=== PATIENT | female | born 1980 | race African-American/Black ===

== ENCOUNTER 2016-11-11 13:28 | Emergency (ER) | payer OTHER, MEDICAID ==
[2016-11-11] MEDS ORDERED: Ondansetron ODT TAB* 4 MG PO ONE (13:59)
[2016-11-11 14:05] VITALS: BP 156/86
--- NOTE | 2016-11-11 14:49 | UC ---
Dizzy HPI HPI Summary: SUDDEN ONSET FRONTAL PRESSURE IN HER HEAD. FEELS DIZZY, NAUSEATED, LIKE SHE IS "IN A FOG". REPORTS SHE CAN NOT TASTE ANYTHING AND HAS LOST SENSATION TO HER ARMS AND HANDS. COPIOUS EMESIS IN EXAM ROOM TODAY. HAS H/O MIGRAINE BUT STATES THIS DOES NOT FEEL LIKE MIGRAINE. NO FEVER. NO VISUAL DISTURBANCE OR PHOTOPHOBIA. - History Of Current Complaint Chief Complaint: UCHeadache Stated Complaint: HEADACHE DIZZY Time Seen by Provider: 11/11/16 14:19 Hx Obtained From: Patient Hx Last Menstrual Period: 10/29/16 Onset/Duration: Sudden Onset, Lasting Hours, Still Present Timing: Constant Severity Initially: Moderate Severity Currently: Moderate Pain Intensity: 9 Pain Scale Used: 0-10 Numeric Character: Weak, Dizzy Aggravating Factor(s): Nothing Alleviating Factor(s): Nothing Associated Signs And Symptoms: Positive: Nausea, Vomiting. Negative: Visual Changes - Allergies/Home Medications Allergies/Adverse Reactions: Allergies Allergy/AdvReac Type Severity Reaction Status Date / Time No Known Allergies Allergy Verified 11/11/16 14:05 Home Medications: Home Medications Sumatriptan Succinate [Imitrex] 50 mg PO 11/11/16 [History] PMH/Surg Hx/FS Hx/Imm Hx Endocrine History Of: Denies: Diabetes, Thyroid Disease, Hyperthyroidism, Hypothyroidism, Dyslipidemia Cardiovascular History Of: Denies: Cardiac Disorders, Hypertension, Pacemaker/ICD, Myocardial Infarction , Congestive Heart Failure, Atrial Fibrillation, Deep Vein Thrombosis, Bleeding Disorders Respiratory History Of: Reports: Asthma - She states she has a mild case of asthma--she is Advair 250/50 Denies: COPD, Bronchitis, Pneumonia, Pulmonary Embolism GI/ History Of: Denies: Gastroesophageal Reflux, Ulcer, Gastrointestinal Bleed, Gall Bladder Disease, Kidney Stones, Diverticulitis, Renal Disease, Urosepsis Neurological History Of: Reports: Migraine Denies: TIA, CVA, Dementia, Seizures Psychological History Of: Reports: Anxiety, Depression Cancer History Of: Denies: Lung Cancer, Colorectal Cancer, Breast Cancer, Prostate Cancer, Cervical Cancer Other History Of: Negative For: HIV, Hepatitis B, Hepatitis C, Anticoagulant Therapy - Surgical History Surgical History: Yes Surgery Procedure, Year, and Place: 2010 - Family History Known Family History: Positive: Cardiac Disease, Hypertension, Diabetes Family History: NON CONTRIBUTORY - Social History Alcohol Use: None Substance Use Type: None Smoking Status (MU): Never Smoked Tobacco Review of Systems Constitutional: Negative Eyes: Negative ENT: Negative Respiratory: Negative Cardiovascular: Negative Gastrointestinal: Vomiting, Other - NAUSEA Genitourinary: Negative Neurological: Headache, Numbness, Other - DIZZY All Other Systems Reviewed And Are Negative: Yes Physical Exam Triage Information Reviewed: Yes Appearance: Well-Appearing, No Pain Distress, Well-Nourished Vital Signs: Initial Vital Signs Temp 97.7 F 11/11/16 13:56 Pulse 72 11/11/16 13:56 Resp 18 11/11/16 13:56 BP 156/86 11/11/16 13:56 Pulse Ox 99 11/11/16 13:56 Vital Signs Reviewed: Yes Eyes: Positive: Conjunctiva Clear, Other: - PERRL, EOMI ENT: Positive: Hearing grossly normal Neck: Positive: Supple Respiratory Exam: Normal Cardiovascular Exam: Normal Abdomen Description: Positive: Soft Musculoskeletal: Positive: No Edema Neurological: Positive: Alert, Other: - CN II-XII GROSSLY INTACT BILATERALLY. NEG PRONATOR DRIFT. FINGER TO NOSE INTACT BILATERALLY. HEEL TO HINKLE INTACT BILATERALLY. RAPID ALTERNATING MVMTS INTACT. 5/5 STRENGTH. UNABLE TO DISTINGUISH SHARP/DULL UPPER EXTREMITIES Psychological: Positive: Age Appropriate Behavior Skin: Negative: rashes Dizzy Course/Dx - Differential Dx/Diagnosis Provider Diagnoses: DIZZY/NAUSEA/SMITH - Physician Notifications Discussed Patient Care With: CLEMENTINA SCHULTE Time Discussed With Above Provider: 14:40 - TO [facility] [place] [facility] BY AMBULANCE Discharge - Discharge Plan Condition: Stable Disposition: TRANS HIGHER L OF CARE FAC Referrals: Itzel Torres MD [Primary Care Provider] -
== END 2016-11-11 14:52 | disposition short-term general hospital (02) ==
LOC: UCEAST 13:28
DX: R42 Dizziness and giddiness (principal); R11.0 Nausea; R51 Headache; J45.909 Unspecified asthma, uncomplicated; F41.8 Other specified anxiety disorders
CPT/HCPCS: 99213; G0463

== ENCOUNTER 2016-11-11 15:10 | Emergency (ER) | payer OTHER, MEDICAID ==
[2016-11-11] MEDS ORDERED: Ondansetron INJ* 2 MG/ML VIAL IV ONE (15:29)
[2016-11-11] MEDS ORDERED: NS 0.9% 1000 ML* 1,000 ML IV ONE (16:10)
[2016-11-11] MEDS ORDERED: Metoclopramide IV* 5 MG/ML 2 ML VIAL IV ONE (16:10)
[2016-11-11] MEDS ORDERED: diPHENhydraMINE IV* 50 MG/ML 1 ml VIAL (BENADRYL) IV ONE (16:10)
[2016-11-11 16:24] LABS: Hematocrit 41 % (35-47); Hemoglobin 13.1 g/dl (12.0-16.0); Mean Corpuscular HGB Conc 32 g/dl (31-36); Mean Corpuscular Hemoglobin 26 pg (27-31); Mean Corpuscular Volume 81 fL (80-97); Mean Platelet Volume 8 um3 (7.4-10.4); Red Blood Count 5.07 10^6/ul (4.0-5.4); Red Cell Distribution Width 16 % (10.5-15)
[2016-11-11 16:32] LABS: Albumin 3.7 g/dL (3.2-5.2); BUN/Creatinine Ratio 10.8 (8-20); Calcium 9.1 mg/dL (8.6-10.3); EGFR African American 113.6 (>60); EGFR Non-African American 88.3 (>60); Globulin 3.6 g/dL (2-4); Total Bilirubin 1.2 mg/dL (0.2-1.0); Total Protein 7.3 g/dL (6.4-8.9)
[2016-11-11 16:33] LABS: Potassium 4.3 mmol/L (3.5-5.0)
--- NOTE | 2016-11-11 16:54 | RAD ---
INDICATION: "Worst headache of her life" COMPARISON: None. TECHNIQUE: Contiguous axial sections of the brain were obtained from the skull base to the vertex without contrast. FINDINGS: The ventricles, cisterns and sulci are within normal limits. The hernandez-white matter differentiation is adequately maintained and there is no sulcal effacement. No significant focal abnormality or mass effect is present. There is no evidence for intracranial hemorrhage. No significant focal osseous abnormality is present. There is mild mucosal thickening of the bilateral visualized maxillary sinuses with a fluid level on the left. The remaining visualized paranasal sinuses are clear. The mastoid air cells are clear. IMPRESSION: Partially visualized maxillary paranasal sinus disease in this otherwise normal brain CT.
[2016-11-11 17:59] LABS: Erythrocyte Sed Rate 11 mm/Hr (0-14)
[2016-11-11] MEDS ORDERED: Ketorolac INJ* 30 MG/ML 1 ML VIAL IV PUSH ONE (18:04)
[2016-11-11 18:12] LABS: Urine Bilirubin Negative (Negative); Urine Glucose Negative (Negative); Urine Nitrite Negative (Negative)
--- NOTE | 2016-11-11 18:48 | ED ---
Feng Brito Adam, scribed for Kareem Wilkinson MD on 11/11/16 at 1609 . Headache - HPI Summary HPI Summary: Pt is a 36 year old female presenting with a SMITH that has been present since she woke up this morning. She has a hx of migraines but states that this is more severe than a typical migraine. The pain is localized diffusely in the top of her head on all sides. It does not radiate to her eyes. It is an 8.5/10 in severity and it's described as a pressure. The pt states that it feels like her head is a balloon that is going to pop. She also c/o nausea, tingling sensation , and loss of taste. She denies any difficulty swallowing, neck pain, or fever. PMHx of endometriosis. Surgical hx of endometrial mass removal. No alcohol/drugs /tobacco. FMHx of CVA. - History Of Current Complaint Chief Complaint: EDHeadache Stated Complaint: VOMITING/HEADACHE Time Seen by Provider: 11/11/16 16:06 Hx Obtained From: Patient Hx Last Menstrual Period: 10/29/16 Onset/Duration: Sudden Onset, Started hours ago, Still Present Initially Headache Was: Moderate Currently Pain Is: Moderate Timing: Constant Character: Pressure Location of Headache: Other: - Top of head on all sides Aggravating Factor: Nothing Allevating Factors: Nothing Associated Signs And Symptoms: Nausea, Other (Noted In Comments) - Tingling sensation, loss of taste - Allergies/Home Medications Allergies/Adverse Reactions: Allergies Allergy/AdvReac Type Severity Reaction Status Date / Time No Known Allergies Allergy Verified 11/11/16 15:16 Home Medications: Home Medications SUMAtriptan TAB* [Imitrex TAB*] 50 mg PO ONCE PRN MDD 100 mg 11/11/16 [History Confirmed 11/11/16] PMH/Surg Hx/FS Hx/Imm Hx Endocrine/Hematology History: Denies: Hx Anticoagulant Therapy, Hx Diabetes, Hx Thyroid Disease Cardiovascular History: Denies: Hx Congestive Heart Failure, Hx Deep Vein Thrombosis, Hx Hypertension , Hx Myocardial Infarction, Hx Pacemaker/ICD Respiratory History: Reports: Hx Asthma - She states she has a mild case of asthma--she is Advair 250/50 Denies: Hx Chronic Obstructive Pulmonary Disease (COPD), Hx Lung Cancer, Hx Pneumonia, Hx Pulmonary Embolism GI History: Reports: Other GI Disorders - umbilical hernia Denies: Hx Gall Bladder Disease, Hx Gastrointestinal Bleed, Hx Ulcer, Hx Urosepsis History: Denies: Hx Dialysis, Hx Kidney Stones, Hx Renal Disease Musculoskeletal History: Reports: Hx Arthritis, Other Musculoskeletal History - diastasis recti, urachal anomaly Neurological History: Reports: Hx Migraine Denies: Hx Dementia, Hx Seizures, Hx Transient Ischemic Attacks (TIA) Psychiatric History: Reports: Hx Anxiety, Hx Depression - Surgical History Surgery Procedure, Year, and Place: 2011 Infectious Disease History: No Infectious Disease History: Denies: History Other Infectious Disease, Traveled Outside the [place] in Last 30 Days - Family History Known Family History: Positive: Cardiac Disease, Hypertension, Diabetes, Other - CVA - Social History Lives: Alone Alcohol Use: None Hx Substance Use: No Substance Use Type: Reports: None Hx Tobacco Use: No Smoking Status (MU): Never Smoked Tobacco Review of Systems Negative: Fever Musculoskeletal: Negative Neurological: Other - Loss of taste Positive: Headache, Numbness - Tingling sensation All Other Systems Reviewed And Are Negative: Yes Physical Exam - Summary Physical Exam Summary: VITAL SIGNS: Reviewed. GENERAL: Patient is a well developed and nourished female who is lying comfortable in the stretcher. She is very pleasant she is not in severe distress. Patient is not in any acute respiratory distress. HEAD AND FACE: No signs of trauma. No ecchymosis, hematomas or skull depressions. No sinus tenderness. EYES: PERRLA, EOMI x 2, No injected conjunctiva, no nystagmus. No photophobia. EARS: Hearing grossly intact. Ear canals and tympanic membranes are within normal limits. MOUTH: Oropharynx within normal limits. NECK: Supple, trachea is midline, no adenopathy, no JVD, no carotid bruit, no c- spine tenderness, neck with full ROM. No meningeal signs, no Kernig's or brudzinskis signs. CHEST: Symmetric, no tenderness at palpation LUNGS: Clear to auscultation bilaterally. No wheezing or crackles. CVS: Regular rate and rhythm, S1 and S2 present, no murmurs or gallops appreciated. ABDOMEN: Soft, non-tender. No signs of distention. No rebound no guarding, and no masses palpated. Bowel sounds are normal. EXTREMITIES: FROM in all major joints, no edema, no cyanosis or clubbing. NEURO: Alert and oriented x 3. No acute neurological deficits. Speech is normal and follows commands. SKIN: Dry and warm Triage Information Reviewed: Yes Vital Signs On Initial Exam: Initial Vitals Temp Pulse Resp BP Pulse Ox 97.8 F 80 16 140/90 98 11/11/16 15:17 11/11/16 15:17 11/11/16 15:17 11/11/16 15:17 11/11/16 15:17 Vital Signs Reviewed: Yes Diagnostics - Vital Signs Vital Signs Temp Pulse Resp BP Pulse Ox 11/11/16 15:17 97.8 F 80 16 140/90 98 - Laboratory Lab Results: Lab Results 11/11/16 11/11/16 Range/Units 14:43 14:43 WBC 12.0 H (3.5-10.8) 10^3/ul RBC 5.07 (4.0-5.4) 10^6/ul Hgb 13.1 (12.0-16.0) g/dl Hct 41 (35-47) % MCV 81 (80-97) fL MCH 26 L (27-31) pg MCHC 32 (31-36) g/dl RDW 16 H (10.5-15) % Plt Count 364 (150-450) 10^3/ul MPV 8 (7.4-10.4) um3 Neut % (Auto) 61.2 (38-83) % Lymph % (Auto) 29.2 (25-47) % Sterling % (Auto) 7.7 (1-9) % Eos % (Auto) 1.2 (0-6) % Baso % (Auto) 0.7 (0-2) % Absolute Neuts (auto) 7.4 (1.5-7.7) 10^3/ul Absolute Lymphs (auto) 3.5 (1.0-4.8) 10^3/ul Absolute Monos (auto) 0.9 H (0-0.8) 10^3/ul Absolute Eos (auto) 0.1 (0-0.6) 10^3/ul Absolute Basos (auto) 0.1 (0-0.2) 10^3/ul Absolute Nucleated RBC 0.01 10^3/ul Nucleated RBC % 0.1 ESR Pending Sodium 137 (133-145) mmol/L Potassium 4.3 (3.5-5.0) mmol/L Chloride 102 (101-111) mmol/L Carbon Dioxide 31 (22-32) mmol/L Anion Gap 4 (2-11) mmol/L BUN 8 (6-24) mg/dL Creatinine 0.74 (0.51-0.95) mg/dL Est GFR ( Amer) 113.6 (>60) Est GFR (Non-Af Amer) 88.3 (>60) BUN/Creatinine Ratio 10.8 (8-20) Glucose 80 (70-100) mg/dL Calcium 9.1 (8.6-10.3) mg/dL Total Bilirubin 1.20 H (0.2-1.0) mg/dL AST 23 (13-39) U/L ALT 19 (7-52) U/L Alkaline Phosphatase 41 (34-104) U/L Total Protein 7.3 (6.4-8.9) g/dL Albumin 3.7 (3.2-5.2) g/dL Globulin 3.6 (2-4) g/dL Albumin/Globulin Ratio 1.0 (1-3) Result Diagrams: 11/11/16 14:43 11/11/16 14:43 Lab Statement: Any lab studies that have been ordered have been reviewed, and results considered in the medical decision making process. - CT BRAIN CT Interpretation Completed By: Radiologist - IMPRESSION: Partially visualized maxillary paranasal sinus disease in this otherwise normal brain CT. Headache Course/Dx - Course Course Of Treatment: Pt is a 36 year old female presenting with a SMITH that has been present since she woke up this morning. She has a hx of migraines but states that this is more severe than a typical migraine. The pain is localized diffusely in the top of her head on all sides. It does not radiate to her eyes. It is an 8.5/10 in severity and it's described as a pressure. The pt states that it feels like her head is a balloon that is going to pop. She also c/o nausea, tingling sensation, and loss of taste. She denies any difficulty swallowing, neck pain, or fever. PMHx of endometriosis. Surgical hx of endometrial mass removal. No alcohol/drugs/tobacco. FMHx of CVA. Assessment/Plan: Test results WNL except for WBC count of 12. Head CT shows: Partially visualized maxillary paranasal sinus disease in this otherwise normal brain CT. In the ED course the pt was given IV fluids, toradol, Benadryl, and reglan for the SMITH. After the pt was given these meds her pain significantly improved. At this point the pt is feeling better. She is ambulating with no significant distress. She is hemodynamically stable and A&Ox3. I discussed all the findings and test results with the patient. Patient was instructed to return to the emergency room immediately if any of the symptoms return or worsens. Patient understands and agrees. Plan of care was discussed with the patient and patient understands and agrees with the plan of care. All questions were answered at patient satisfaction. There were no further complaints or concerns. Patient is alert and oriented x 3. Patient vital signs are stable. Patient is to follow up with primary care physician in the next 2 to 3 days. Patient understands and agrees. - Diagnoses Differential Diagnosis/HQI/PQRI: TIA, Epidural Hematoma, Migraine, Sinus Headache, Subarachnoid Hemorrhage, Tension Headache Provider Diagnoses: Migraine headache Discharge - Discharge Plan Condition: Stable Disposition: HOME Patient Education Materials: Migraine Headache (ED) Referrals: Itzel Torres MD [Primary Care Provider] - Additional Instructions: Follow up with your Primary Care Physician. The documentation as recorded by the Feng newsome Adam accurately reflects the service I personally performed and the decisions made by me, Kareem Wilkinson MD.
[2016-11-12 05:20] VITALS: BP 109/60
== END 2016-11-11 19:38 | disposition home or self-care (01) ==
LOC: ED 15:10
DX: G43.909 Migraine, unspecified, not intractable, without status migrainosus (principal); J45.909 Unspecified asthma, uncomplicated; F41.9 Anxiety disorder, unspecified; F32.9 Major depressive disorder, single episode, unspecified
CPT/HCPCS: 36415; 70450; 80053; 81003; 85025; 85652; 96360; 96374; 96375; 99283; J1200; J1885; J2405

== ENCOUNTER 2017-09-14 07:58 | Emergency (ER) | payer OTHER, MEDICAID ==
[2017-09-14 08:09] VITALS: BP 123/75
--- NOTE | 2017-09-14 08:53 | UC ---
FLU HPI - HPI Summary HPI Summary: Pt presents with dry cough, chest tightness, fatigue, and body aches for the last 2 days. She is a student at [employer] and has had many sick contacts with the flu. She has a history of asthma and has inhalers at home that she uses - says her albuterol HFA is only helping a little. She also complains of wheezing - especially at nighttime. Denies fever, chills, SOB, chest pain, abdominal pain , n/v/d/c - History of Current Complaint Chief Complaint: UCGeneralIllness Stated Complaint: RESP ISSUE Time Seen by Provider: 09/14/17 08:52 Hx Obtained From: Patient Hx Last Menstrual Period: 09/13/17 Onset/Duration: Gradual Onset Severity Currently: Moderate Severity Initially: Moderate Pain Intensity: 7 Pain Scale Used: 0-10 Numeric - Allergy/Home Medications Allergies/Adverse Reactions: Allergies Allergy/AdvReac Type Severity Reaction Status Date / Time No Known Allergies Allergy Verified 09/14/17 08:04 PMH/Surg Hx/FS Hx/Imm Hx Previously Healthy: Yes Respiratory History: Asthma Other History Of: Negative For: HIV, Hepatitis B, Hepatitis C, Anticoagulant Therapy - Surgical History Surgical History: Yes Surgery Procedure, Year, and Place: 2010 - Family History Known Family History: Positive: Cardiac Disease, Hypertension, Diabetes, Other - CVA - Social History Occupation: Student Lives: With Family Alcohol Use: None Substance Use Type: None Smoking Status (MU): Never Smoked Tobacco Review of Systems Constitutional: Fatigue, Other - Body aches ENT: Negative Respiratory: Cough Cardiovascular: Negative Gastrointestinal: Negative Musculoskeletal: Negative Neurological: Negative Psychological: Negative All Other Systems Reviewed And Are Negative: Yes Physical Exam Triage Information Reviewed: Yes Appearance: Well-Appearing, No Pain Distress, Well-Nourished Vital Signs: Initial Vital Signs Temp 96.6 F 09/14/17 08:04 Pulse 81 09/14/17 08:04 Resp 20 09/14/17 08:04 BP 123/75 09/14/17 08:04 Pulse Ox 98 09/14/17 08:04 Vital Signs Reviewed: Yes Eyes: Positive: Conjunctiva Clear. Negative: Conjunctiva Inflamed, Discharge ENT: Positive: Hearing grossly normal, Pharynx normal, TMs normal, Uvula midline. Negative: Pharyngeal erythema, Nasal congestion, Nasal drainage, TM bulging, TM dull, TM red, Tonsillar swelling, Tonsillar exudate, Muffled voice, Hoarse voice, Sinus tenderness Neck: Positive: Supple, Nontender, No Lymphadenopathy Respiratory: Positive: Lungs clear, No respiratory distress, No accessory muscle use, Wheezing - Moderate throughout. Negative: Crackles Cardiovascular: Positive: RRR, No Murmur, Pulses Normal Neurological: Positive: Fatigued Psychological: Positive: Age Appropriate Behavior Skin: Negative: rashes Re-Evaluation - Re-Evaluation First Eval Re-Evaluation Time: 09:57 Change: Improved Comment: Pt reports significant improvement and feels it is easier to breathe. Lung sounds improved with decreased wheezing. Flu Course/Dx - Course Course Of Treatment: Duoneb: Significant improvement. CXR: IMPRESSION: HYPERINFLATION WHICH CAN BE SEEN WITH COPD OR REACTIVE AIRWAY DISEASE. NO ACTIVE CARDIOPULMONARY DISEASE. Flu swab: flu A pos. Will treat with Tamiflu and steroids given her history of asthma and current exacerbation. - Differential Dx/Diagnosis Provider Diagnoses: Influenza A. Asthma exacerbation Discharge - Discharge Plan Condition: Stable Disposition: HOME Prescriptions: Oseltamivir CAP* [Tamiflu CAP*] 75 mg PO BID #10 cap predniSONE TAB* [Deltasone TAB*] 50 mg PO DAILY #5 tab Patient Education Materials: Influenza (ED) Forms: *School Release Referrals: No Primary Care Phys,NOPCP [Primary Care Provider] - Additional Instructions: If you develop a fever, shortness of breath, chest pain, new or worsening symptoms - please call your PCP or go to the ED. 1) Rest, drink plenty of fluids, and take tylneol as needed for fever and general discomfort.
[2017-09-14] MEDS ORDERED: Albuterol/Ipratropium NEB.SOL* Albuterol 2.5 MG/Ipratropium 0.5 MG 3 ML INH ONE (09:04)
--- NOTE | 2017-09-14 09:28 | RAD ---
HISTORY: Cough, wheeze COMPARISONS: None VIEWS: 4: Frontal dual-energy and lateral views of the chest. FINDINGS: CARDIOMEDIASTINAL SILHOUETTE: The cardiomediastinal silhouette is normal. NADYA: The nadya are normal. PLEURA: The costophrenic angles are sharp. No pleural abnormalities are noted. LUNG PARENCHYMA: There is hyperinflation with flattening of the diaphragm and expansion of the retrosternal airspace.. ABDOMEN: The upper abdomen is clear. There is no subphrenic gas. BONES AND SOFT TISSUES: No bone or soft tissue abnormalities are noted. OTHER: None. IMPRESSION: HYPERINFLATION WHICH CAN BE SEEN WITH COPD OR REACTIVE AIRWAY DISEASE. NO ACTIVE CARDIOPULMONARY DISEASE.
== END 2017-09-14 10:08 | disposition home or self-care (01) ==
LOC: UCEAST 07:58
DX: J10.1 Influenza due to other identified influenza virus with other respiratory manifestations (principal); J45.901 Unspecified asthma with (acute) exacerbation
CPT/HCPCS: 71046; 87502; 99212; A9270-GY; G0463

== ENCOUNTER 2018-10-21 09:24 | Emergency (ER) | payer OTHER, MEDICAID ==
[2018-10-21 09:32] VITALS: BP 123/81
--- NOTE | 2018-10-21 10:14 | UC ---
Throat Pain/Nasal Jerel HPI - HPI Summary HPI Summary: 38 y/o female presents to the urgent care c/o SMITH, sinus pressure w/ clear nasal discharge, body aches, chills since yesterday. today she developed B/l ear pressure and a dry cough. She took Excedrin PO to alleviate symptoms. Pt has Hx of seasonal allergies. but she has been exposed to the flu at work. Pain 02/09. Pt denies fever, but has felt hot, SOB, chest pain, wheezing, abdominal pain, N/V/D. - History of Current Complaint Chief Complaint: UCRespiratory Stated Complaint: SINUS INFECTION Time Seen by Provider: 10/21/18 10:11 Hx Obtained From: Patient Hx Last Menstrual Period: 09/13/17 Onset/Duration: Gradual Onset, Lasting Days - 2 days, Still Present Severity: Moderate Pain Intensity: 8 - body aches and sinus pain Pain Scale Used: 0-10 Numeric Cough: Nonproductive Associated Signs & Symptoms: Positive: Sinus Discomfort, Nasal Discharge - yellowish, Fever - subjective low grade trudi at home - Epiglottits Risk Factors Epiglottis Risk Factors: Negative - Allergies/Home Medications Allergies/Adverse Reactions: Allergies Allergy/AdvReac Type Severity Reaction Status Date / Time No Known Allergies Allergy Verified 10/21/18 09:33 Home Medications: Home Medications Levomefolate/Algal Oil [Levomefolate-Algal 7.5 mg Cap] 1 cap PO DAILY 10/21/18 [ History Confirmed 10/21/18] Venlafaxine ER (NF) [Effexor ER (NF)] 150 mg PO BID 10/21/18 [History Confirmed 10/21/18] PMH/Surg Hx/FS Hx/Imm Hx Previously Healthy: Yes Respiratory History: Asthma Neurological History: Migraine Other History Of: Negative For: HIV, Hepatitis B, Hepatitis C, Anticoagulant Therapy - Surgical History Surgical History: Yes Surgery Procedure, Year, and Place: 2010 - Family History Known Family History: Positive: Cardiac Disease, Hypertension, Diabetes, Other - CVA Family History: NON CONTRIBUTORY - Social History Occupation: Employed Full-time Lives: With Family Alcohol Use: None Substance Use Type: None Smoking Status (MU): Never Smoked Tobacco Review of Systems All Other Systems Reviewed And Are Negative: Yes Constitutional: Positive: Fever - low grade fever at home, Chills, Other - body aches Skin: Positive: Negative Eyes: Positive: Negative ENT: Positive: Ear Ache - B/L ear pressure, Nasal Discharge - yellowish, Sinus Congestion, Sinus Pain/Tenderness Respiratory: Positive: Cough - dry Cardiovascular: Positive: Negative Gastrointestinal: Positive: Negative Genitourinary: Positive: Negative Motor: Positive: Negative Neurovascular: Positive: Negative Musculoskeletal: Positive: Myalgia Neurological: Positive: Headache Psychological: Positive: Negative Is Patient Immunocompromised?: No Physical Exam - Summary Physical Exam Summary: VITAL SIGNS: Reviewed. GENERAL: Patient is a well developed and nourished obese female who is sitting comfortable in the examining table. Patient is not in any acute respiratory distress. HEAD AND FACE: No signs of trauma. No ecchymosis, hematomas or skull depressions. No sinus tenderness. EYES: PERRLA, EOMI x 2, No injected conjunctiva, no nystagmus. No photophobia. EARS: Hearing grossly intact. Ear canals and tympanic membranes are within normal limits. Nose: edematous and erythematous nasal mucosa w/ clear nasal discharge. MOUTH: Positive no erythema, no tonsillar enlargement. Uvula in midline. NECK: Supple, trachea is midline, Positive anterior cervical lymphadenopathy, no JVD, no carotid bruit, no c-spine tenderness, neck with full ROM. No meningeal signs, no Kernig's or brudzinskis signs. CHEST: Symmetric, no tenderness at palpation LUNGS: Clear to auscultation bilaterally. No wheezing or crackles. CVS: Regular rate and rhythm, S1 and S2 present, no murmurs or gallops appreciated. ABDOMEN: Soft, non-tender. No signs of distention. No rebound no guarding, and no masses palpated. Bowel sounds are normal. EXTREMITIES: FROM in all major joints, no edema, no cyanosis or clubbing. NEURO: Alert and oriented x 3. No acute neurological deficits. Speech is normal and follows commands. SKIN: Dry and warm Triage Information Reviewed: Yes Vital Signs: Initial Vital Signs Temp 98 F 10/21/18 09:29 Pulse 73 10/21/18 09:29 Resp 18 10/21/18 09:29 BP 123/81 10/21/18 09:29 Pulse Ox 99 10/21/18 09:29 Throat Pain/Nasal Course/Dx - Course Course Of Treatment: 38 y/o female presents to the urgent care c/o SMITH, sinus pressure w/ clear nasal discharge, body aches, chills since yesterday. today she developed B/l ear pressure and a dry cough. She took Excedrin PO to alleviate symptoms. Pt has Hx of seasonal allergies. but she has been exposed to the flu at work. Pain 02/09. Pt denies fever, but has felt hot, SOB, chest pain, wheezing, abdominal pain, N/V/D. Hx obtained. Pt with syndrome on examination. Influenza A &B ordered: result: Influenza negative. Pt will be treated prophylactically due to exposure. Pt Rx Tamiflu and ibuprofen PO and Flonase nasal spray to alleviates symptoms. Advised on hand washing and wear a mask to avoid spreading. Pt advised to rest, increase fluid intake, eat well and avoid strenuous exercise. Pt advised if not improvement of care or f/u with her PCP for further evaluation and treatment. Pt understood and agreed w/ plan of care. - Differential Dx/Diagnosis Differential Diagnosis/HQI/PQRI: Laryngitis, Mononucleosis, Sinusitis, Tonsillitis, URI Provider Diagnosis: Acute viral syndrome, Sinusitis Discharge - Sign-Out/Discharge Documenting (check all that apply): Patient Departure - D/C home All imaging exams completed and their final reports reviewed: No Studies - Discharge Plan Condition: Stable Disposition: HOME Prescriptions: Fluticasone NASAL SPRAY 50MCG* [Flonase NASAL SPRAY 50MCG*] 2 spray BOTH NARES DAILY #1 btl Fluticasone/Vilanterol MDI(NF) [Breo Ellipta MDI 200/25(NF)] 1 puff INH DAILY # 1 mdi Oseltamivir CAP* [Tamiflu CAP*] 75 mg PO BID #10 cap Patient Education Materials: Viral Syndrome (ED) Forms: *Work Release Referrals: [facility] [place] [facility] [Outside] - 3 Days Additional Instructions: 1- Please take the full course of the antiviral to avoid resistance. Encourage hand washing and wear a mask to avoid spreading. 2-Please continue taking Ibuprofen or Tylenol PO q6-8hrs prn as instructed after meals to alleviate fever, and sore throat. Increase fluid intake, eat well, rest and avoid strenuous exercise 3- Use the Flonase Naal spray and saline drops as directed to clear sinuses 3-If symptoms do not improve or worsen please return to the urgent care or f/u with your PCP in 3 days for further evaluation and treatment. - Billing Disposition and Condition Condition: STABLE Disposition: Home
[2018-10-21 10:41] LABS: Influenza A Molecular NEGATIVE (Negative); Influenza B Molecular NEGATIVE (Negative)
== END 2018-10-21 11:12 | disposition home or self-care (01) ==
LOC: UCEAST 09:24
DX: B34.9 Viral infection, unspecified (principal); J32.9 Chronic sinusitis, unspecified; J45.909 Unspecified asthma, uncomplicated; G43.909 Migraine, unspecified, not intractable, without status migrainosus; Z79.899 Other long term (current) drug therapy
CPT/HCPCS: 36415; 86703; 99212; G0463

== ENCOUNTER 2019-05-12 16:50 | Emergency (ER) | payer MEDICAID, OTHER ==
[2019-05-12 17:08] VITALS: BP 127/76
--- NOTE | 2019-05-12 17:09 | UC ---
Abdominal Pain Female HPI - HPI Summary HPI Summary: 39 yo female presents with abdominal pain. She tells me that last night she developed lower abdominal cramping that became worse throughout the night. This morning she had loose BMs with sharp lower abdominal pain. She has felt nauseous and has vomited x2. She has had about 6 instances of loose watery BMs today. She is drinking and had a fruit smoothie this afternoon. She denies fever , chills, dysuria, flank pain, vaginal bleeding or discharge. - History of Current Complaint Chief Complaint: UCGeneralIllness Stated Complaint: VOMITING ABDOMINAL PAIN Time Seen by Provider: 05/12/19 17:09 Hx Obtained From: Patient Hx Last Menstrual Period: IUD Onset/Duration: Sudden Onset Severity Initially: Moderate Severity Currently: Moderate Pain Intensity: 7 Pain Scale Used: 0-10 Numeric Allergies/Adverse Reactions: Allergies Allergy/AdvReac Type Severity Reaction Status Date / Time No Known Allergies Allergy Verified 05/12/19 17:08 PMH/Surg Hx/FS Hx/Imm Hx Respiratory History: Asthma Psychological History: Anxiety, Depression Other History Of: Negative For: HIV, Hepatitis B, Hepatitis C, Anticoagulant Therapy - Surgical History Surgical History: Yes Surgery Procedure, Year, and Place: 2011. mass removed from abdominal muscle wall in 2016 - Family History Known Family History: Positive: Cardiac Disease, Hypertension, Diabetes, Other - CVA Family History: NON CONTRIBUTORY - Social History Lives: With Family Alcohol Use: None Substance Use Type: None Smoking Status (MU): Never Smoked Tobacco Review of Systems All Other Systems Reviewed And Are Negative: No Constitutional: Positive: Negative Skin: Positive: Negative Respiratory: Positive: Negative Cardiovascular: Positive: Negative Gastrointestinal: Positive: Abdominal Pain, Vomiting, Diarrhea, Nausea Genitourinary: Positive: Negative Neurovascular: Positive: Negative Neurological: Positive: Negative Psychological: Positive: Negative Physical Exam - Summary Physical Exam Summary: GENERAL: NAD. WDWN. No pain distress. SKIN: No rashes, sores, lesions, or open wounds. NECK: Supple. Nontender. No lymphadenopathy. CHEST: CTAB. No r/r/w. No accessory muscle use. Breathing comfortably and in no distress. CV: RRR. Pulses intact. Cap refill <2seconds ABDOMEN: Soft. NTTP. No distention or guarding. No CVA tenderness. Bowel sounds present NEURO: Alert. PSYCH: Age appropriate behavior. Triage Information Reviewed: Yes Vital Signs: Initial Vital Signs Temp 98.3 F 05/12/19 17:01 Pulse 97 05/12/19 17:01 Resp 16 05/12/19 17:01 BP 127/76 05/12/19 17:01 Pulse Ox 98 05/12/19 17:01 Laboratory Tests 05/12/19 05/12/19 17:31 17:34 POC Urine Color Dark yellow POC Urine Clarity Clear POC Urine pH 7.0 POC Ur Specif [place] 1.015 POC Urine Protein Negative POC Ur Glucose (UA) Negative POC Urine Ketones Negative POC Urine Blood Trace-intact A POC Urine Nitrite Negative POC Urine Bilirubin Negative POC Urine Urobilinogen 0.2 POC U Leukocyte Esteras Negative POC Ur Test Negative Vital Signs Reviewed: Yes Abd Pain Female Course/Dx - Course Course Of Treatment: UA negative. Urine negative. Exam is WNL and without point tenderness. She is afebrile and has been tolerating po without vomiting since this afternoon. I discussed with her that I suspect a viral gastroenteritis and recommended zofran, BRAT diet, and po fluids and rest. She did not agree with this dx and is requesting imaging of her abdomen for further eval. I discussed with her that we do not have the appropriate imaging modalities here at the urgent care and if she would like imaging of her abdomen - I recommend going to the ER. Pt states she will go to the ER for further eval. - Differential Dx/Diagnosis Provider Diagnosis: Gastroenteritis Discharge ED - Sign-Out/Discharge Documenting (check all that apply): Patient Departure All imaging exams completed and their final reports reviewed: No Studies - Discharge Plan Condition: Stable Disposition: HOME Patient Education Materials: Gastroenteritis (DC) Referrals: No Primary Care Phys,NOPCP [Primary Care Provider] - - Billing Disposition and Condition Condition: STABLE Disposition: Home
== END 2019-05-12 17:54 | disposition home or self-care (01) ==
LOC: UCEAST 16:50
DX: K52.9 Noninfective gastroenteritis and colitis, unspecified (principal)
CPT/HCPCS: 81003; 84702; 99211; G0463